=== PATIENT | male | born 1985 | race Hispanic/Latino ===

== ENCOUNTER 2017-03-19 04:47 | Emergency (ER) | payer SELFPAY ==
[2017-03-19] MEDS ORDERED: Ketorolac Tromethamine 60 MG/2 ML VIAL ONE ×2 (05:29→05:30)
--- NOTE | 2017-03-19 07:39 | RAD ---
TWO VIEWS OF THE CHEST: COMPARISON: 10/05/12. HISTORY: Cough. FINDINGS: Two views of the chest show normal sized cardiomediastinal silhouette. There is no evidence of conso lidation, mass, or pleural effusion. The bones are unremarkable. IMPRESSION: No evidence of acute cardiopulmonary disease. POS: [facility]
== END 2017-03-19 06:07 | disposition home or self-care (01) ==
LOC: ERS 04:47
DX: J40 Bronchitis, not specified as acute or chronic (principal); E78.5 Hyperlipidemia, unspecified; F41.9 Anxiety disorder, unspecified; F17.210 Nicotine dependence, cigarettes, uncomplicated
CPT/HCPCS: 71020; 93005; 96372; J1885; J7620

== ENCOUNTER 2018-06-22 19:31 | Emergency (ER) | payer SELFPAY ==
[2018-06-22] MEDS ORDERED: Dexamethasone 10 MG/ML VIAL ONE (21:06)
[2018-06-22] MEDS ORDERED: Ketorolac Tromethamine 60 MG/2 ML VIAL ONE (21:06)
[2018-06-22] MEDS ORDERED: Diazepam 5 MG TAB ONE (21:06)
--- NOTE | 2018-06-23 00:24 | CT ---
CT LUMBAR SPINE WITHOUT CONTRAST: 06/22/18 HISTORY: Worsening back pain. COMPARISON: None. TECHNIQUE: Noncontrast lumbar spine CT is performed. Reformatted images are submitted FINDINGS: Five lumbar type vertebral bodies. Lumbar spine vertebral body height is maintained. There is no fra cture. No spondylolisthesis or spondylolysis. The visualized retroperitoneal structures, solid organs and alimentary canal are unremarkable. Limited evaluation of the contents of the central spinal canal and neural foramina due to technique. T11-T12 and T12-L1: No significant central canal stenosis. Neural foramina are patent. L1-L2: No significant central canal stenosis. Neural foramina are patent. L2-L3: No significant central canal stenosis. Neural foramina are patent. L3-L4: Minimal generalized disc bulge. No significant central canal stenosis. Neural foramina are pat ent. L4-L5: Minimal generalized disc bulge with a small left subarticular component. Minimal flattening of the ventral thecal sac in the left subarticular zone. Nevertheless, no significant central canal frieda nosis. Right neural foramen and left neural foramen are mildly narrowed. L5-S1: There appears to be a central/left subarticular disc protrusion. Disc material appears to abut the traversing left S1 nerve root. There also appears to be a small amount of disc material in the r ight subarticular zone. Disc material minimally abuts the traversing right S1 nerve root. There is mi ld narrowing of the thecal sac. Mild bilateral foraminal narrowing. IMPRESSION: Degenerative disc disease of the lumbar spine as above. There is no high grade central canal stenosis or high grade foraminal narrowing. There is degenerative disc disease at L5-S1 as described above. N onemergent lumbar spine MRI is recommended. POS: [facility]
== END 2018-06-22 21:30 | disposition home or self-care (01) ==
LOC: ERS 19:31
DX: M54.16 Radiculopathy, lumbar region (principal); E78.5 Hyperlipidemia, unspecified; F41.9 Anxiety disorder, unspecified; F17.210 Nicotine dependence, cigarettes, uncomplicated
CPT/HCPCS: 72131; 96372; J1100; J1885

== ENCOUNTER 2019-10-14 12:40 | Emergency (ER) | payer SELFPAY ==
[2019-10-14] MEDS ORDERED: HYDROcodone/Acetaminophen 5/325 mg Tablet ONE (13:03)
[2019-10-14] MEDS ORDERED: Ketorolac Tromethamine 30 MG/ML VIAL ONE (13:03)
--- NOTE | 2019-10-14 13:40 | RAD ---
LEFT FOOT 3 VIEWS: Date: 10/14/2019 HISTORY: Trauma. Injury. COMPARISON: None. FINDINGS: No acute fracture or malalignment. Mild lateral soft tissue swelling. IMPRESSION: No acute displaced fracture appreciated. POS: [facility]
--- NOTE | 2019-10-14 13:41 | RAD ---
LEFT ANKLE 3 VIEWS: Date: 10/14/2019 HISTORY: Injury. COMPARISON: None. FINDINGS: Mild bimalleolar soft tissue swelling. No acute displaced fracture or malalignment. IMPRESSION: No acute osseous abnormality. POS: [facility]
== END 2019-10-14 14:23 | disposition home or self-care (01) ==
LOC: ERS 12:40
DX: S93.402A Sprain of unspecified ligament of left ankle, initial encounter (principal); E78.5 Hyperlipidemia, unspecified; E78.00 Pure hypercholesterolemia, unspecified; F41.9 Anxiety disorder, unspecified; F17.210 Nicotine dependence, cigarettes, uncomplicated; W10.9XXA Fall (on) (from) unspecified stairs and steps, initial encounter
CPT/HCPCS: 96374; J1885

== ENCOUNTER 2021-04-02 12:43 | Emergency (ER) | payer SELFPAY | END 2021-04-02 14:16 | disposition home or self-care (01) | LOC: ERS 12:43 | DX: B35.0 Tinea barbae and tinea capitis (principal); B35.4 Tinea corporis; E78.5 Hyperlipidemia, unspecified; E78.00 Pure hypercholesterolemia, unspecified; F17.210 Nicotine dependence, cigarettes, uncomplicated | CPT/HCPCS: 99282 ==

== ENCOUNTER 2021-04-23 21:48 | Emergency (ER) | payer SELFPAY ==
[2021-04-23] MEDS ORDERED: Ondansetron PF 4 MG/2 ML Vial ONE (22:02)
[2021-04-23] MEDS ORDERED: Ketorolac Tromethamine 30 MG/ML VIAL ONE (22:02)
[2021-04-23 22:10] LABS: #Basophils 0.2 thou/uL (0.0-0.2); #Eosinphils 0.2 thou/uL (0.0-0.7); #Lymphocytes 3.3 thou/uL (1.20-3.40); #Monocytes 0.7 thou/uL (0.11-0.59); #Neutrophils 6.7 thou/uL (1.40-6.50); %Basophils 1.4 % (0.0-1.0); %Eosinophils 2.1 % (0.0-10.0); %Lymphocytes 29.9 % (21.0-51.0); %Monocytes 5.9 % (0.0-10.0); %Neutrophils 60.8 % (42.0-75.0); Hemoglobin 17.6 g/dL (14.0-18.0); Mean Corpuscular HGB CONC 34.4 g/dL (32.0-36.0); Mean Corpuscular Hemoglobin 29.9 pg (27.0-31.0); Mean Corpuscular Volume 86.9 fL (78.0-98.0); Mean Platelet Volume 7.9 fL (7.4-10.4); Platelet Count 333 thou/uL (130-400); RBC Distribution Width 12.1 % (11.5-14.5); Red Blood Cell (RBC) Count 5.88 mill/uL (4.70-6.10)
[2021-04-23 22:19] LABS: Bilirubin Negative (Negative); Blood, Urine Negative (Negative); Clarity Turbid (Clear); Glucose, Urine (Dipstick) Normal (Negative); Ketone, Urine Negative (Negative); Leukocyte Negative Leu/uL (Negative); Nitrite Negative (Negative); Protein, Urine (Dipstick) Negative (Neg-Trace); Specific Gravity, Urine 1.018 (1.002-1.036); Urobilinogen Normal mg/dL (Less than 2)
[2021-04-23 22:34] LABS: ALT (SGPT) 27 U/L (8-55); AST (SGOT) 22 U/L (5-34); Albumin 4.4 g/dL (3.5-5.0); Alkaline Phosphatase 113 U/L (40-110); Anion Gap 17 mmol/L (10-20); BUN (Urea Nitrogen) 17 mg/dL (8.9-20.6); Bilirubin, Total 0.4 mg/dL (0.2-1.2); Calc. Creatinine Clearance 0 mL/min (70-130); Calcium 9.8 mg/dL (7.8-10.44); Carbon Dioxide 20 mmol/L (22-29); Chloride 104 mmol/L (98-107); Globulin 3.9 g/dL (2.4-3.5); Glucose 110 mg/dL (70-105); Lipase 61 U/L (8-78); Potassium 3.8 mmol/L (3.5-5.1); Protein, Total 8.3 g/dL (6.0-8.3); Sodium 137 mmol/L (136-145)
== END 2021-04-23 23:26 | disposition home or self-care (01) ==
LOC: ERS 21:48
DX: R10.12 Left upper quadrant pain (principal); R00.1 Bradycardia, unspecified; E78.5 Hyperlipidemia, unspecified; E78.00 Pure hypercholesterolemia, unspecified; F17.210 Nicotine dependence, cigarettes, uncomplicated
CPT/HCPCS: 74176; 80053; 81003; 83690; 85025; 93005; 96374; 96375; J1885; J2405

== ENCOUNTER 2021-04-24 07:38 | Emergency (ER) | payer SELFPAY ==
[2021-04-24] MEDS ORDERED: diphenhydrAMINE 50 MG/ML VIAL ONE (08:11)
[2021-04-24] MEDS ORDERED: Famotidine/PF 20 mg/2ml Vial ONE (08:38)
[2021-04-24] MEDS ORDERED: Dexamethasone 10 MG/ML VIAL ONE (08:38)
== END 2021-04-24 10:43 | disposition home or self-care (01) ==
LOC: ERS 07:38
DX: L50.0 Allergic urticaria (principal); E78.5 Hyperlipidemia, unspecified; E78.00 Pure hypercholesterolemia, unspecified; F17.210 Nicotine dependence, cigarettes, uncomplicated
CPT/HCPCS: 96374; 96375; J1100; J1200; S0028

== ENCOUNTER 2021-08-07 11:46 | Emergency (ER) | payer SELFPAY ==
[~2021-08-07 11:46] MED LIST: Iopamidol 370 76% 100 ML VIAL ONE
[2021-08-07 12:32] LABS: #Eosinphils 0.1 thou/uL (0.0-0.7); #Lymphocytes 1.3 thou/uL (1.20-3.40); #Monocytes 0.6 thou/uL (0.11-0.59); #Neutrophils 3.7 thou/uL (1.40-6.50); %Basophils 0.6 % (0.0-1.0); %Lymphocytes 22.5 % (21.0-51.0); %Monocytes 10.8 % (0.0-10.0); %Neutrophils 65.1 % (42.0-75.0); Hemoglobin 16.3 g/dL (14.0-18.0); Mean Corpuscular HGB CONC 33.4 g/dL (32.0-36.0); Mean Corpuscular Hemoglobin 30.5 pg (27.0-31.0); Mean Corpuscular Volume 91.4 fL (78.0-98.0); Mean Platelet Volume 7.2 fL (7.4-10.4); Platelet Count 227 thou/uL (130-400); RBC Distribution Width 12.3 % (11.5-14.5); Red Blood Cell (RBC) Count 5.35 mill/uL (4.70-6.10); White Blood Cell (WBC) Count 5.7 thou/uL (4.8-10.8)
[2021-08-07 12:56] LABS: ALT (SGPT) 27 U/L (8-55); AST (SGOT) 19 U/L (5-34); Albumin 4.1 g/dL (3.5-5.0); Alkaline Phosphatase 78 U/L (40-110); Anion Gap 12 mmol/L (10-20); BUN (Urea Nitrogen) 13 mg/dL (8.9-20.6); Bilirubin, Total 0.4 mg/dL (0.2-1.2); Calc. Creatinine Clearance 0 mL/min (70-130); Calcium 8.6 mg/dL (7.8-10.44); Carbon Dioxide 23 mmol/L (22-29); Chloride 106 mmol/L (98-107); Glucose 98 mg/dL (70-105); Protein, Total 7.1 g/dL (6.0-8.3); Sodium 137 mmol/L (136-145)
== END 2021-08-07 15:07 | disposition home or self-care (01) ==
LOC: ERS 11:46
DX: R07.81 Pleurodynia (principal); E78.5 Hyperlipidemia, unspecified; F17.210 Nicotine dependence, cigarettes, uncomplicated
CPT/HCPCS: 71045; 71275; 80053; 84484; 85025; 85379; 93005; Q9967

== ENCOUNTER 2021-11-25 01:51 | Emergency (ER) | payer SELFPAY ==
[2021-11-25 02:41] LABS: #Basophils 0.1 thou/uL (0.0-0.2); #Eosinphils 0.1 thou/uL (0.0-0.7); #Lymphocytes 2.3 thou/uL (1.20-3.40); #Monocytes 0.6 thou/uL (0.11-0.59); #Neutrophils 7.9 thou/uL (1.40-6.50); %Basophils 0.6 % (0.0-1.0); %Eosinophils 0.7 % (0.0-10.0); %Lymphocytes 20.8 % (21.0-51.0); %Neutrophils 72.9 % (42.0-75.0); Hemoglobin 16.3 g/dL (14.0-18.0); Mean Corpuscular HGB CONC 34.1 g/dL (32.0-36.0); Mean Corpuscular Hemoglobin 30.9 pg (27.0-31.0); Mean Corpuscular Volume 90.7 fL (78.0-98.0); Mean Platelet Volume 7.3 fL (7.4-10.4); Platelet Count 265 thou/uL (130-400); RBC Distribution Width 11.9 % (11.5-14.5); Red Blood Cell (RBC) Count 5.27 mill/uL (4.70-6.10); White Blood Cell (WBC) Count 10.8 thou/uL (4.8-10.8)
[2021-11-25 03:02] LABS: ALT (SGPT) 27 U/L (8-55); AST (SGOT) 16 U/L (5-34); Albumin 4.1 g/dL (3.5-5.0); Alkaline Phosphatase 96 U/L (40-110); Anion Gap 12 mmol/L (10-20); BUN (Urea Nitrogen) 20 mg/dL (8.9-20.6); Bilirubin, Total 0.4 mg/dL (0.2-1.2); Calc. Creatinine Clearance 0 mL/min (70-130); Calcium 9.5 mg/dL (7.8-10.44); Carbon Dioxide 21 mmol/L (22-29); Chloride 107 mmol/L (98-107); Glucose 141 mg/dL (70-105); Lipase 49 U/L (8-78); Potassium 3.4 mmol/L (3.5-5.1); Protein, Total 7.1 g/dL (6.0-8.3); Sodium 137 mmol/L (136-145)
== END 2021-11-25 03:26 | disposition home or self-care (01) ==
LOC: ERS 01:51
DX: R41.82 Altered mental status, unspecified (principal); F41.9 Anxiety disorder, unspecified; E78.5 Hyperlipidemia, unspecified; E78.00 Pure hypercholesterolemia, unspecified; F17.210 Nicotine dependence, cigarettes, uncomplicated
CPT/HCPCS: 36415; 80053; 83690; 85025; 93005

== ENCOUNTER 2022-04-27 19:25 | Emergency (ER) | payer SELFPAY ==
[~2022-04-27 19:25] MED LIST changes: -Iopamidol 370 76% 100 ML VIAL ONE; +Iopamidol-370 76% 500 ML 1 ML ONE
[2022-04-27] MEDS ORDERED: FENTANYL 50 MCG/ML 1 ML VIAL ONE (19:48)
[2022-04-27] MEDS ORDERED: Ketorolac Tromethamine 30 MG/ML VIAL ONE (19:48)
[2022-04-27 20:03] LABS: #Eosinphils 0.1 thou/uL (0.0-0.7); #Lymphocytes 3.1 thou/uL (1.20-3.40); #Monocytes 0.5 thou/uL (0.11-0.59); #Neutrophils 11.5 thou/uL (1.40-6.50); %Basophils 0.3 % (0.0-1.0); %Eosinophils 0.3 % (0.0-10.0); %Lymphocytes 20.6 % (21.0-51.0); %Neutrophils 75.8 % (42.0-75.0); Hemoglobin 16.8 g/dL (14.0-18.0); Mean Corpuscular Hemoglobin 29.6 pg (27.0-31.0); Mean Platelet Volume 7.6 fL (7.4-10.4); Platelet Count 353 thou/uL (130-400); RBC Distribution Width 12.1 % (11.5-14.5); Red Blood Cell (RBC) Count 5.69 mill/uL (4.70-6.10); White Blood Cell (WBC) Count 15.2 thou/uL (4.8-10.8)
[2022-04-27] MEDS ORDERED: Ondansetron PF 4 MG/2 ML Vial ONE (20:08)
[2022-04-27 20:26] LABS: ALT (SGPT) 32 U/L (8-55); AST (SGOT) 25 U/L (5-34); Albumin 4.6 g/dL (3.5-5.0); Alkaline Phosphatase 97 U/L (40-110); Anion Gap 17 mmol/L (10-20); BUN (Urea Nitrogen) 15 mg/dL (8.9-20.6); Bilirubin, Total 0.3 mg/dL (0.2-1.2); Calc. Creatinine Clearance 0 mL/min (70-130); Calcium 9.5 mg/dL (7.8-10.44); Carbon Dioxide 19 mmol/L (22-29); Chloride 105 mmol/L (98-107); Estimated GFR 96; Globulin 3.8 g/dL (2.4-3.5); Glucose 111 mg/dL (70-105); Potassium 4.1 mmol/L (3.5-5.1); Protein, Total 8.4 g/dL (6.0-8.3); Sodium 137 mmol/L (136-145)
== END 2022-04-27 22:41 | disposition home or self-care (01) ==
LOC: ERS 19:25
DX: M54.6 Pain in thoracic spine (principal); F17.210 Nicotine dependence, cigarettes, uncomplicated
CPT/HCPCS: 71275; 80053; 84484; 85025; 93005; 96374; 96375; J1885; J2405; J3010; Q9967

== ENCOUNTER 2022-08-15 22:57 | Emergency (ER) | payer SELFPAY | END 2022-08-16 01:52 | disposition home or self-care (01) | LOC: ERS 22:57 | DX: S61.317A Laceration without foreign body of left little finger with damage to nail, initial encounter (principal); W23.1XXA Caught, crushed, jammed, or pinched between stationary objects, initial encounter ==

== ENCOUNTER 2022-12-08 11:05 | Emergency (ER) | payer OTHER, SELFPAY ==
[2022-12-08] MEDS ORDERED: LORazepam 2 MG/ML SYR.(CARPUJECT) ONE (11:15)
[2022-12-08] MEDS ORDERED: levETIRAcetam 500 MG/5 ML VIAL ONE (11:31)
[2022-12-08 11:36] LABS: #Eosinphils 0.1 thou/uL (0.0-0.7); #Monocytes 0.5 thou/uL (0.11-0.59); #Neutrophils 4.7 thou/uL (1.40-6.50); %Basophils 0.5 % (0.0-1.0); %Eosinophils 1.2 % (0.0-10.0); %Lymphocytes 30.8 % (21.0-51.0); %Monocytes 6.2 % (0.0-10.0); Mean Corpuscular HGB CONC 34.2 g/dL (32.0-36.0); Mean Corpuscular Hemoglobin 29.4 pg (27.0-31.0); Mean Corpuscular Volume 86.1 fl (78.0-98.0); Mean Platelet Volume 9.4 fL (7.4-10.4); Platelet Count 312 10x3/uL (130-400); RBC Distribution Width 12.7 % (11.5-14.5); White Blood Cell (WBC) Count 7.7 10x3/uL (4.8-10.8)
[2022-12-08 11:58] LABS: Acetaminophen Less than 10 mcg/mL (10.0-30.0); Alcohol Less than 10.0 mg/dL (Less than 10); Magnesium 2.1 mg/dL (1.6-2.6); Salicylate Less than 8.0 mg/dL (15.0-30.0)
[2022-12-08 12:03] LABS: ALT (SGPT) 23 U/L (8-55); AST (SGOT) 18 U/L (5-34); Albumin 4.1 g/dL (3.5-5.0); Alkaline Phosphatase 85 U/L (40-110); Anion Gap 11 mmol/L (10-20); BUN (Urea Nitrogen) 18 mg/dL (8.9-20.6); Bilirubin, Total 0.8 mg/dL (0.2-1.2); Calc. Creatinine Clearance 0 mL/min (70-130); Calcium 8.8 mg/dL (7.8-10.44); Carbon Dioxide 21 mmol/L (22-29); Chloride 107 mmol/L (98-107); Estimated GFR 112; Globulin 2.7 g/dL (2.4-3.5); Glucose 104 mg/dL (70-105); Potassium 3.6 mmol/L (3.5-5.1); Protein, Total 6.8 g/dL (6.0-8.3); Sodium 135 mmol/L (136-145)
== END 2022-12-08 13:55 | disposition home or self-care (01) ==
LOC: ERS 11:05
DX: S06.0X0A Concussion without loss of consciousness, initial encounter (principal); F17.210 Nicotine dependence, cigarettes, uncomplicated; W22.8XXA Striking against or struck by other objects, initial encounter; Y92.69 Other specified industrial and construction area as the place of occurrence of the external cause
CPT/HCPCS: 36415; 70450; 72125; 80053; 80307; 83735; 84146; 85025; 93005; 96365; 96375; J1953; J2060

== ENCOUNTER 2025-03-05 11:42 | Emergency (ER) | payer SELFPAY | END 2025-03-05 13:02 | disposition home or self-care (01) | LOC: ERS 11:42 | DX: S93.402A Sprain of unspecified ligament of left ankle, initial encounter (principal); F17.210 Nicotine dependence, cigarettes, uncomplicated; W01.0XXA Fall on same level from slipping, tripping and stumbling without subsequent striking against object, initial encounter | CPT/HCPCS: 99283 ==